=== PATIENT | female | born 1955 | race Caucasian/White ===

== ENCOUNTER 2024-07-11 00:19 | Emergency (ER) | payer MEDICARE, SELFPAY ==
[2024-07-11 00:19] VITALS: BMI 30.7
[2024-07-11 00:30] VITALS: BP 175/85
[2024-07-11 02:12] LABS: % Basophils 0.6 % (0-2); % Eosinophils 1.4 % (0-6); % Immature Granulocytes 0.3 % (0-0.5); % Lymphocytes 18.7 % (20.5-51.1); % Monocytes 9.2 % (1.7-9.3); % Neutrophils 69.8 % (42.2-75.2); Absolute Basophils 0.1 10^3/uL (0-0.2); Absolute Eosinophils 0.2 10^3/uL (0-0.7); Absolute Lymphocytes 2.7 10^3/uL (1.2-3.4); Absolute Monocytes 1.3 10^3/uL (0.1-0.6); Absolute Neutrophils 10.2 10^3/uL (1.4-6.5); Hematocrit 41.4 % (37.0-47.0); Hemoglobin 13.7 g/dL (12.0-16.0); Mean Corp Hgb Conc. 33.1 g/dL (33.0-37.0); Mean Corpuscular Hgb 28.7 pg (27.0-31.0); Mean Corpuscular Volume 86.8 fL (81.0-99.0); Mean Platelet Volume 9.5 fL (7.4-10.4); Nucleated Red Blood Cells % 0 %; Platelet Count 307 10^3/uL (130-400); Red Blood Cell Count 4.77 10^6/uL (4.20-5.40); Red Cell Dist. Width 12.6 % (11.5-14.5); White Blood Cell Count 14.5 10^3/uL (4.8-10.8)
[2024-07-11 02:22] LABS: AST (SGOT) 26 U/L (14-36); Albumin 4.5 g/dl (3.5-5.0); Alkaline Phosphatase 76 U/L (38-126); Blood Urea Nitrogen 16 mg/dl (7-17); Carbon Dioxide 27 mmol/L (22-30); Chloride 104 mmol/L (98-107); Glucose 138 mg/dl (70-99); Total Bilirubin 0.5 mg/dl (0.2-1.3); Total Protein 7.1 g/dl (6.3-8.2); eGFR > 60.00
[2024-07-11 02:31] LABS: ALT (SGPT) 17 U/L (0-35); Calcium 10.8 mg/dl (8.4-10.2); Potassium 5.1 mmol/L (3.5-5.1); Sodium 141 mmol/L (135-145)
[2024-07-11 02:34] LABS: Troponin I < 0.012 ng/ml
--- NOTE | 2024-07-11 02:59 | ED.GENMED ---
History of Present Illness
<LORRAINE Feliz - Last Filed: 07/11/24 07:17>
General
Chief Complaint: Heart Rate Problem
Time Seen by Provider: 07/11/24 04:28
History of Present Illness
History of Present Illness:
Patient is a 68 year old female with a PMH of a heart arrhythmia comes into the ED with complaints of palpitations x 11 hours. The palpitations started while she was eating a bowl of cereal. She states she has PVCs and knows the feeling of them but
this is different. She claims she feels a pounding on her chest and it causes her to twitch her body. She states that these palpitations are relatively constant and comes with waves of shortness of breath. The sob is described as having trouble
taking deep breaths and it comes and goes with the palpitations. Nothing to this extent has ever happened to her before. Patient states she is currently going through a lot of stress which could be causing the symptomatic PVCs. She denies any chest
pain fever headache dizziness numbness or tingling.
Patient has a history of DM HTN and hyperthyroidism which are controlled on medication. She denies any smoking or alcohol use.
Review of Systems
<LORRAINE Feliz - Last Filed: 07/11/24 07:17>
Review of Systems
Constitutional: Reports no symptoms
Respiratory: Reports trouble breathing (trouble taking deep breaths intermittently )
Cardiac: Reports palpitations
ABD/GI: Reports no symptoms
Neurological: Reports no symptoms
Phy Exam
<LORRAINE Feliz - Last Filed: 07/11/24 07:17>
Physical Exam
Physical Exam:
see physical
Cardiovascular Exam
Cardiovascular Exam: no edema, no gallop, no JVD, no murmur and occasionally irregular
Pulmonary Exam
Pulmonary Exam: lungs clear, no respiratory distress, no rales, chest non tender, no crackles, no rhonchi, no stridor, no wheezing and no cough
Course
<LuisLORRAINE Tucker - Last Filed: 07/11/24 07:17>
Orders/Labs/Results
Orders:
Orders
07/11/24 00:20
Electrocardiogram (*1) Urgent
Reason for Study: Palpitations
EKG- Treatment ONCE
07/11/24 01:52
Electrocardiogram (*1) Urgent
Reason for Study: Palpitations
07/11/24 01:53
EKG- Treatment ONCE
07/11/24 01:59
Complete Blood Count/With Diff Urgent
Comprehensive Metabolic Panel Urgent
Magnesium Urgent
Comment: ADD ON
TSH Reflex To Free T4 Urgent
Comment: ADD ON
07/11/24 02:01
Troponin I Urgent
07/11/24 04:52
0.9% Sodium Chloride 1000 ml [Nss] 1,000 ml IV BOLUS
Metoprolol [Lopressor] 5 mg IV NOW STA
07/11/24 04:55
Add On- LAB Urgent
Tests Added?: TSH w reflex to free T-4; Mg
07/11/24 05:47
Metoprolol [Lopressor] 5 mg IV NOW STA
Abnormal Lab Results
07/11/24
01:59
WBC 14.5 H 10^3/uL
(4.8-10.8)
Absolute Neuts (auto) 10.2 H 10^3/uL
(1.4-6.5)
Absolute Monos (auto) 1.3 H 10^3/uL
(0.1-0.6)
Lymphocytes % 18.7 L %
(20.5-51.1)
Creatinine 0.5 L mg/dL
(0.6-1.0)
Glucose 138 H mg/dl
(70-99)
Calcium 10.8 H mg/dl
(8.4-10.2)
07/11/24 01:59
07/11/24 01:59
Vital Signs
Initial and Last Documented VS:
Initial Vital Signs
Temp Pulse Resp BP Pulse Ox
98.4 F 81 18 175/85 99
07/11/24 00:30 07/11/24 00:30 07/11/24 00:30 07/11/24 00:30 07/11/24 00:30
Last Documented Vital Signs
Temp Pulse Resp BP Pulse Ox
97.6 F 86 20 131/82 99
07/11/24 07:00 07/11/24 07:00 07/11/24 07:00 07/11/24 07:00 07/11/24 07:00
<Jenna Rivera, DO - Last Filed: 07/11/24 06:54>
Orders/Labs/Results
Orders:
Orders
07/11/24 00:20
Electrocardiogram (*1) Urgent
Reason for Study: Palpitations
EKG- Treatment ONCE
07/11/24 01:52
Electrocardiogram (*1) Urgent
Reason for Study: Palpitations
07/11/24 01:53
EKG- Treatment ONCE
07/11/24 01:59
Complete Blood Count/With Diff Urgent
Comprehensive Metabolic Panel Urgent
Magnesium Urgent
Comment: ADD ON
TSH Reflex To Free T4 Urgent
Comment: ADD ON
07/11/24 02:01
Troponin I Urgent
07/11/24 04:52
0.9% Sodium Chloride 1000 ml [Nss] 1,000 ml IV BOLUS
Metoprolol [Lopressor] 5 mg IV NOW STA
07/11/24 04:55
Add On- LAB Urgent
Tests Added?: TSH w reflex to free T-4; Mg
07/11/24 05:47
Metoprolol [Lopressor] 5 mg IV NOW STA
Abnormal Lab Results
07/11/24
01:59
WBC 14.5 H 10^3/uL
(4.8-10.8)
Absolute Neuts (auto) 10.2 H 10^3/uL
(1.4-6.5)
Absolute Monos (auto) 1.3 H 10^3/uL
(0.1-0.6)
Lymphocytes % 18.7 L %
(20.5-51.1)
Creatinine 0.5 L mg/dL
(0.6-1.0)
Glucose 138 H mg/dl
(70-99)
Calcium 10.8 H mg/dl
(8.4-10.2)
07/11/24 01:59
07/11/24 01:59
Vital Signs
Initial and Last Documented VS:
Initial Vital Signs
Temp Pulse Resp BP Pulse Ox
98.4 F 81 18 175/85 99
07/11/24 00:30 07/11/24 00:30 07/11/24 00:30 07/11/24 00:30 07/11/24 00:30
Last Documented Vital Signs
Temp Pulse Resp BP Pulse Ox
97.6 F 86 20 131/82 99
07/11/24 07:00 07/11/24 07:00 07/11/24 07:00 07/11/24 07:00 07/11/24 07:00
<LORRAINE Feliz - Last Filed: 07/11/24 07:17>
MDM/Problems Addressed
Differential Diagnosis Includes:
PVC, arrhythmia,
MDM/Problems Addressed:
EKGs normal, give iv fluids and beta [place], check thyroid levels
<LORRAINE Feliz - Last Filed: 07/11/24 07:17>
*Critical Care Note
Total Time (30-74mins, 75-104mins- exclusive of procedures): Not Applicable
ED Attending Note
<LORRAINE Feliz - Last Filed: 07/11/24 07:17>
-
Portions of this chart may have been created with voice recognition software.� Occasional wrong word or��sound alike� substitutions may have occurred due to the inherent limitations of voice recognition software.
<Jenna Rivera DO - Last Filed: 07/11/24 06:54>
ED Attending Note
Patient seen and examined by attending physician: Yes
I performed the substantive portion of visit, reviewed & personally made and approve the management plan that is documented in note by myself or KWAKU.: Yes
ED Attending Note:
This is a 68-year-old woman who has history of hyperthyroidism, chronically maintained on methimazole and reports stable thyroid function being tested every 6 months with last evaluation perhaps 1 month ago.
She also has history of PVCs, palpitations and follows with a lab head at [place], Dr. Watkins with last visit a month ago. Discussed her intermittent palpitations, discussed initiation of a low-dose beta-ragentina for as needed use but thus far
has not required.
Tonight however she complains of recurrent palpitations since 5 PM, pounding, intermittent in nature and persistent which is unlike her previous episodes of PVCs. She denies chest pain, denies shortness of breath, no cough, no dizziness nor
lightheadedness.
She admits to consuming 1 cup of coffee per day other than this denies increased caffeine use, no alcohol use, no drug use, no decongestant use. No recent travel. No cough no URI nor fever.
GENERAL: Alert , in no apparent distress
EYE: anicteric
NECK: Supple, nontender, no meningismus, no significant adenopathy.
ENT: oral mucosa is moist. No rhinorrhea.
CARDIAC: Regular rate and rhythm. Occasional ectopy. No murmur.
LUNGS: Clear breath sounds bilaterally, no acute respiratory distress, no wheezes/rales/rhonchi
ABDOMEN: Soft, nondistended, without focal tenderness
NEUROLOGICAL: Alert and oriented x3, no focal neuro deficits.
SKIN: Warm and dry, normal color, skin intact. No rash.
MUSCULOSKELETAL: No C/C/E. peripheral pulses are full and equal b/l. No palpable tenderness.
PSYCH: Normal and appropriate interaction.
EKG and laboratory monitor showed unifocal PVCs, frequent in nature. Otherwise unremarkable.
I suspect symptomatic PVCs. Labs thus far reveal mildly elevated white blood cell count of 14.5, chemistries show mildly elevated random glucose of 138 otherwise unremarkable. Troponin is negative.
With history of hyperthyroidism, most consider exacerbation of hyperthyroidism thus will check TSH and will check magnesium as well.
Will give an IV fluid bolus and trial an IV dose of Lopressor.
07/11/2024 05:45 AM
Patient feeling somewhat improved, continues with palpitations but less symptomatic.
BP stable. IV fluids infusing, will give an additional dose of Lopressor.
TSH is pending. Magnesium is normal.
07/11/2024 0652 AM
Patient feeling improved and is eager to be discharged to home.
TSH is normal.
Discharge Plan
Departure
Patient Disposition: Home (Routine Discharge)
Date of Disposition: 07/11/24
Time of Disposition: 06:52
Patient with high blood pressure during this ER visit?: No
Condition: Good
Discharge Problem:
Heart palpitations, Contraction, premature ventricular
Instructions: Ventricular premature beats
Prescriptions:
New
metoprolol tartrate 25 mg tablet
12.5 mg PO BIDPRN PRN (Reason: PALPITATAIONS) Qty: 20 0RF
No Action
metformin 500 MG tablet extended release 24 hr
500 mg PO DAILY
methimazole 5 MG tablet
5 mg PO DAILY
pravastatin 20 MG tablet
20 mg PO DAILY
escitalopram oxalate 20 MG tablet
10 mg PO DAILY
cholecalciferol (vitamin D3) [Vitamin D3] 400 UNITS tablet
1,000 units PO DAILY
biotin 5,000 MCG tablet,disintegrating
5,000 mcg PO
amlodipine-benazepril 1 CAPSULE capsule
2 cap PO DAILY 0RF
aspirin [Aspir-Low] 81 MG tablet,delayed release (DR/EC)
81 mg PO DAILY Qty: 0 0RF
Rx Instructions:
5 days post-op
Multivitamin
1 tab PO DAILY Qty: 0 0RF
Rx Instructions:
5 days p/o
hydrocodone-acetaminophen 1 TABLET tablet
1 tab PO Q4HPRN PRN (Reason: moderate-severe pain ) Qty: 1 0RF
Rx Instructions:
1 tab moderate pain, 2 tabs if pain severe
omeprazole 40 mg Capsule,Delayed Release(Dr/Ec)
40 mg PO DAILY
Jardiance 10 mg Tablet
10 mg PO DAILY
Mounjaro 5 mg/0.5 mL Pen Injector
5 mg SC QWEEK
alprazolam 0.5 MG tablet
0.5 mg PO HS PRN (Reason: anxiety)
Referrals:
UNKNOWN - PT DOES,NOT KNOW [Family Provider] -
Activity Restrictions/Additional Instructions:
Stay well-hydrated on a daily basis.
Avoid all caffeinated beverages at least over the next few weeks.
You have been prescribed metoprolol, to take 1/2 tablet twice daily as needed for palpitations.
Follow-up with your lab head for recheck.
Interventions
Interventions:
*Risk Screen - Suicide Last Done: 07/11/24 07:00
*General Assessment Last Done: 07/11/24 02:36
*Neglect/Abuse Screening Last Done: 07/11/24 07:00
ED- Fall Risk Assessment Last Done: 07/11/24 02:45
*ED COVID-19 Vaccine History Last Done: 07/11/24 02:36
*Nursing Disposition Last Done: 07/11/24 07:01
ED- Cardiac Assessment Last Done: 07/11/24 07:00
ED- Pulmonary Assessment Last Done: 07/11/24 02:45
Discharge Date and Time
Discharge Date/Time: 07/11/24 07:02
Print Language: ANGUILLAN
[2024-07-11 03:00] VITALS: BP 150/56
[2024-07-11 04:00] VITALS: BP 145/64
[2024-07-11 04:58] VITALS: BP 136/108
[2024-07-11] MEDS: LOPRESSOR 5 MG IV ×2 (04:58→06:17)
[2024-07-11] MEDS: NSS 1000 IV (05:00)
[2024-07-11 05:50] LABS: Magnesium 1.9 mg/dl (1.6-2.3)
[2024-07-11 06:18] VITALS: BP 141/129
[2024-07-11 07:00] VITALS: BP 131/82
== END 2024-07-11 07:02 | disposition home or self-care (01) ==
LOC: EMR 00:19
PROVIDERS: Student in an Organized Health Care Education/Training Program; EMERGENCY PHYSICIAN Emergency Medicine
DX: R00.2 Palpitations (principal); I49.9 Cardiac arrhythmia, unspecified; E11.9 Type 2 diabetes mellitus without complications; I10 Essential (primary) hypertension; E05.90 Thyrotoxicosis, unspecified without thyrotoxic crisis or storm; Z86.79 Personal history of other diseases of the circulatory system
CPT/HCPCS: 99283; 80053; 83735; 84443; 84484; 85025; 93005